=== PATIENT | female | born 1985 | race Caucasian/White ===

== ENCOUNTER 2018-05-04 07:48 | Emergency (ER) | payer OTHER ==
[~2018-05-04] VITALS: Ht 162.6 cm; Wt 98.6 kg
[2018-05-04 07:53] VITALS: Ht 162.6 cm; Wt 98.6 kg
[2018-05-04 09:55] VITALS: BP 123/75
== END 2018-05-04 10:07 | disposition home or self-care (01) ==
LOC: ED 07:48
DX: O23.42 Unspecified infection of urinary tract in pregnancy, second trimester (principal); Z3A.19 19 weeks gestation of pregnancy

== ENCOUNTER 2020-07-18 08:55 | Emergency (ER) | payer OTHER ==
[~2020-07-18] VITALS: Ht 160 cm; Wt 102.5 kg
[2020-07-18 09:09] VITALS: Ht 160 cm; Wt 102.5 kg
[2020-07-18 10:48] LABS: BASOPHIL % 0.7 % (0-2); PLATELET COUNT 257 x10^3mcL (130-400)
[2020-07-18 10:50] LABS: RED CELL DISTRIBUTION WIDTH 16.9 % (11.5-14.5)
[2020-07-18 11:22] LABS: CALCIUM 8.9 mg/dL (8.5-10.1); CARBON DIOXIDE 29.2 mmol/L (21-32); CHLORIDE SERUM 105 mmol/L (98-107); CREATININE SERUM 0.8 mg/dL (0.6-1.0); GFR1 > 60 mL/min; GLUCOSE SERUM 125 mg/dL (74-106); POTASSIUM SERUM 3.8 mmol/L (3.5-5.1); SODIUM SERUM 140 mmol/L (136-145)
[2020-07-18 11:26] LABS: ALBUMIN 3.5 g/dL (3.4-5.0); ALKALINE PHOSPHATASE 97 U/L (46-116); ALT/SGPT 170 U/L (14-59); AMYLASE 56 U/L (25-115); AST/SGOT 201 U/L (15-37); BILIRUBIN TOTAL 0.8 mg/dL (0.20-1.00); LIPASE 181 IU/L (73-393); TOTAL PROTEIN, SERUM 7.3 g/dL (6.4-8.2)
[2020-07-18 12:30] VITALS: BP 121/75
== END 2020-07-18 12:30 | disposition home or self-care (01) ==
LOC: ED 08:55
PROVIDERS: Emergency Medicine
DX: R10.816 Epigastric abdominal tenderness (principal); Z90.89 Acquired absence of other organs
CPT/HCPCS: J7030